=== PATIENT | male | born 2000 | race Caucasian/White ===

== ENCOUNTER 2021-08-10 14:26 | Observation (INO) ==
[2021-08-10] MEDS ORDERED: LORazepam 2 mg VIAL 1 ml ONE (15:13)
[2021-08-10] MEDS ORDERED: levETIRAcetam 1000MG IVPREMIX 1,000 MG/100 ML BAG IVPB ONE (15:17)
[2021-08-10] MEDS ORDERED: Lorazepam PYXIS KEY PRN (15:17)
[2021-08-10] MEDS ORDERED: LORazepam 2 mg VIAL 1 ml IV PUSH ONE (15:17)
[2021-08-10] MEDS ORDERED: levETIRAcetam 500 MG IVPREMIX 500 MG/100 ML BAG IVPB ONE (15:20)
[2021-08-10] MEDS ORDERED: Lactated Ringers 1000 ml BAG 1,000 ML IV ONE (15:21)
[2021-08-10 15:55] LABS: ABS Basophils 0.1 10^3/ul (0-0.2); ABS Eosinophils 0.4 10^3/ul (0-0.6); ABS Lymphocytes 2.2 10^3/ul (1.0-4.8); ABS Monocytes 0.7 10^3/ul (0-0.8); ABS Neutrophils 4.7 10^3/ul (1.5-7.7); Eosinophil % 5.3 %; Hematocrit 46 % (42-52); Hemoglobin 15.8 g/dL (14.0-18.0); Lymphocyte % 26.5 %; Mean Corpuscular HGB Conc 34 g/dL (31-36); Mean Corpuscular Hemoglobin 32 pg (27-31); Mean Corpuscular Volume 94 fL (80-94); Platelet Count 256 10^3/uL (150-450); Red Blood Count 4.93 10^6 /uL (4.18-5.48); Red Cell Distribution Width 13 % (10-15); White Blood Count 8.1 10^3/uL (3.5-10.8)
[2021-08-10 16:18] LABS: ALT 20 U/L (7-52); AST 21 U/L (13-39); Albumin 4.8 g/dL (3.2-5.2); Albumin/Globulin Ratio 1.7 (1-3); Alkaline Phosphatase 78 U/L (35-149); Anion Gap 18 mmol/L (2-11); Blood Urea Nitrogen 12 mg/dL (6-24); CO2 Carbon Dioxide 17 mmol/L (22-32); Chloride 106 mmol/L (101-111); Globulin 2.9 g/dL (2-4); Glucose 132 mg/dL (70-100); Sodium 141 mmol/L (135-145); Total Protein 7.7 g/dL (6.4-8.9)
[2021-08-10 16:21] LABS: Urine Benzodiazepine Screen None Detected (None Detect); Urine Cannabinoids Screen Presumptive Positive (None Detect); Urine Opiates Screen None Detected (None Detect)
[2021-08-10 16:45] LABS: Alcohol, S < 13 mg/dL (<13)
[2021-08-10] MEDS ORDERED: Ondansetron 4 mg VIAL 2 MG/ML 2 ml VIAL IV PRN (17:10)
[2021-08-10 19:12] LABS: Rapid COVID-19 Molecular Undetected (Undetected)
[2021-08-10 19:17] LABS: Acetaminophen < 15 mcg/mL; Salicylate < 2.50 mg/dL (<30)
[2021-08-11] MEDS ORDERED: Gadoteridol (CONTRAST) 279.3 MG/ML 10 ML IV ONE (19:56)
[2021-08-12 06:07] LABS: Albumin 4.9 g/dL (3.2-5.2); Albumin/Globulin Ratio 1.6 (1-3); Calcium 9.9 mg/dL (8.6-10.3); Potassium 3.8 mmol/L (3.5-5.0); Total Bilirubin 1.7 mg/dL (0.2-1.0); Total Protein 7.9 g/dL (6.4-8.9)
[2021-08-12 09:23] VITALS: BP 118/76
== END 2021-08-12 12:32 | disposition home or self-care (01) ==
LOC: MEDTELE 14:26 → ED 14:26 → SUATTDRO 16:46 → MEDTELE 20:56
PROVIDERS: ADMIT Internal Medicine; ATTEND Student in an Organized Health Care Education/Training Program